=== PATIENT | male | born 1985 | race Caucasian/White ===

== ENCOUNTER 2016-10-04 13:23 | Emergency (ER) | payer BC, OTHER ==
[2016-10-04] MEDS ORDERED: diazePAM 5 MG TABLET PO ONE (13:36)
[2016-10-04] MEDS ORDERED: KETOROLAC TROMETHAMINE 30 MG/1 ML VIAL IM ONE (13:36)
[2016-10-04 13:42] VITALS: BP 127/75; PULSE 81; TEMP 98.3; BMI 29.1
[2016-10-04] MEDS ORDERED: diazePAM 5 MG TABLET ONE (13:44)
[2016-10-04] MEDS ORDERED: KETOROLAC TROMETHAMINE 30 MG/1 ML VIAL ONE (13:44)
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
== END 2016-10-04 15:13 | disposition home or self-care (01) ==
LOC: FER 13:23
PROC: 3E0233Z Introduction of Anti-inflammatory into Muscle, Percutaneous Approach (ICD-10-PCS; principal; 2016-10-04)
PROC: 3E023GC Introduction of Other Therapeutic Substance into Muscle, Percutaneous Approach (ICD-10-PCS; 2016-10-04)
DX: M43.6 Torticollis (principal); F17.210 Nicotine dependence, cigarettes, uncomplicated; F41.9 Anxiety disorder, unspecified; F32.9 Major depressive disorder, single episode, unspecified
CPT/HCPCS: 99282-25

== ENCOUNTER 2018-12-28 16:15 | Emergency (ER) | payer BC ==
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
[2018-12-28 16:34] VITALS: BP 117/76; PULSE 72; TEMP 99.1; BMI 28.9
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
== END 2018-12-28 17:25 | disposition home or self-care (01) ==
LOC: FER 16:15
PROC: 0HQ1XZZ Repair Face Skin, External Approach (ICD-10-PCS; principal; 2018-12-28)
DX: S01.112A Laceration without foreign body of left eyelid and periocular area, initial encounter (principal); Y04.2XXA Assault by strike against or bumped into by another person, initial encounter; Y92.9 Unspecified place or not applicable; Y93.9 Activity, unspecified
CPT/HCPCS: 99283-25

== ENCOUNTER 2019-01-06 16:09 | Emergency (ER) | payer BC ==
[2019-01-06 16:19] VITALS: BP 112/73; PULSE 79; TEMP 99.2; BMI 28.6
--- NOTE | 2019-01-06 16:19 | PDOC ---
Suture Removal/Wound Check HPI - History of Present Illness Chief Complaint: Suture/Staple Removal(Here) Stated Complaint: SUTURE REMOVAL Time Seen by Provider: 01/06/19 16:11 History Source: Yes: Patient Exam Limitations: Yes: No Limitations - Previous ED Treatment Type of procedure performed on last visit: Yes: Laceration Repair - Onset of Previous Treatment Date of Occurence: 12/28/18 Comment:: 01/06/19 16:16 33 year old male returns for suture removal. He had previously visited a physician several days ago and had 2 sutures removed , but stated the other two sutures required more time. No fevers, chills. No complaints. Returns here for suture removal. Past History - Past Medical History Allergies/Adverse Reactions: Allergies Allergy/AdvReac Type Severity Reaction Status Date / Time No Known Allergies Allergy Verified 01/06/19 16:15 Home Medications: Ambulatory Orders NK [No Known Home Medication] 12/28/18 COPD: No Psychiatric Problems: Yes (ANXIETY) - Immunization History Immunization Up to Date: Yes - Suicide/Smoking/Psychosocial Hx Smoking History: Current every day smoker Have you smoked in the past 12 months: Yes Number of Cigarettes Smoked Daily: 20 'Breaking Loose' booklet given: 10/04/16 Hx Alcohol Use: (social) Drug/Substance Use Hx: No Substance Use Type: None Suture Removal/Wound Check PE - Physical Exam Laceration/Wound Check Symptoms: reports: None. denies: Pain, Fever, Chills, Redness, Discharge, Bleeding, Numbness, Weakness, Improved, Persistent, Worsening, Resolved, Other Comment Comments: 01/06/19 16:17 Well healed, no signs of erythema, drainage or infection. [address] Current Severity Level: None Maximum Severity Level: None Pain Localization: None Location of Laceration/Wound: left: Head Pain Radiation: None *Review of Systems - Review of Systems Able to Perform ROS?: Yes Comments:: 01/06/19 16:17 GENERAL/CONSTITUTIONAL: [No fever or chills. No weakness. No weight change.] HEAD, EYES, EARS, NOSE AND THROAT: [No change in vision. No ear pain or discharge. No sore throat.] CARDIOVASCULAR: [No chest pain or shortness of breath.] RESPIRATORY: [No cough, wheezing, or hemoptysis.] GASTROINTESTINAL: [No nausea, vomiting, diarrhea or constipation. No rectal bleeding.] GENITOURINARY: [No dysuria, frequency, or change in urination.] MUSCULOSKELETAL: [No joint or muscle swelling or pain. No neck or back pain.] SKIN AND BREASTS: [No rash or easy bruising.] NEUROLOGIC: [No headache, vertigo, loss of consciousness, or loss of sensation.] PSYCHIATRIC: [No depression or anxiety.] ENDOCRINE: [No increased thirst. No abnormal weight change.] HEMATOLOGIC/LYMPHATIC: [No anemia, easy bleeding, or history of blood clots.] ALLERGIC/IMMUNOLOGIC: [No hives or skin allergy. No latex allergy.] Procedures - Additional Procedures Progress: 01/06/19 16:18 2 sutures removed successfully. Medical Decision Making - Medical Decision Making 01/06/19 16:18 Wound is well healed and sutures are ready to be taken out. 2 removed (the other 2 removed from a prior visit with another physician). Pt can be discharged home. *DC/Admit/Observation/Transfer Diagnosis at time of Disposition: Visit for suture removal - Discharge Dispostion Disposition: HOME Condition at time of disposition: Good Decision to Admit order: No - Referrals Referrals: Francisco J Stringer MD [Primary Care Provider] - - Patient Instructions Printed Discharge Instructions: DI for Suture Removal Additional Instructions: You have had your sutures removed today. You do not need to come back for a wound check. However, if you experience any fevers or redness or signs of a skin infection, please call your doctor or return to the ER. - Post Discharge Activity
== END 2019-01-06 16:21 | disposition home or self-care (01) ==
LOC: FER 16:09
DX: Z48.02 Encounter for removal of sutures (principal)
CPT/HCPCS: 99281-25